=== PATIENT | female | born 1955 | race Caucasian/White ===

== ENCOUNTER 2019-05-23 17:02 | Emergency (ER) | payer MEDICARE, OTHER ==
[~2019-05-23] VITALS: Ht 167.7 cm; Wt 133.6 kg
--- NOTE | 2019-05-23 17:30 | ED General ---
General Stated Complaint: EPISTAXIS Source of Information: Patient, Family Exam Limitations: No Limitations History of Present Illness Date Seen by Provider: May 23, 2019 Time Seen by Provider: 17:15 Initial Comments Presents w intermittent nosebleeds for past few days. Seen by PCP today and sent to ER w concern of persistent nosebleed. Bleeding stopped prior to arrival. Typically does not have nosebleeds. Hx COPD, but denies CP or soa. Recent hospital admission and states she was on 7 L of oxygen / [place]. On home O2 only prn. Denies trauma or Hx bleeding problem. Elevated HR noted, pt says she has a Hx of the same and takes metoprolol 2x/day to control her heart rate. Has not taken her evening dose of metoprolol. Otherwise, feeling fine and without further complaint. Allergies and Home Medications Allergies Coded Allergies: Penicillins (Verified Allergy, Unknown, 05/23/19) Tetanus Vaccines and Toxoid (Verified Allergy, Unknown, 05/23/19) smallpox vaccine,live (Verified Allergy, Unknown, 05/23/19) Patient Home Medication List Home Medication List Reviewed: Yes Review of Systems Review of Systems Constitutional: see HPI; No chills, No diaphoresis, No dizziness, No fever, No malaise, No weakness EENTM: epistaxis, nose congestion; No ear discharge, No ear pain, No hoarseness, No mouth pain, No mouth swelling, No nose pain, No throat pain, No throat swelling Respiratory: see HPI; No cough, No dyspnea on exertion, No orthopnea, No phlegm, No short of breath, No stridor, No wheezing Cardiovascular: No chest pain, No edema, No palpitations, No syncope, No vascular heart diseas Gastrointestinal: No abdominal pain, No vomiting Past Ogmvshj-Wrilpj-Lihggc Hx Past Med/Social Hx: Reviewed Nursing Past Med/Soc Hx Patient Social History Recent Foreign Travel: No Physical Exam Vital Signs Vital Signs - First Documented 05/23/19 17:10 Temp 36.4 Pulse 122 Resp 24 B/P (MAP) 131/77 (95) Pulse Ox 88 O2 Delivery Room Air Capillary Refill : Height, Weight, BMI Height: '" Weight: lbs. oz. kg; BMI Method: General Appearance: No Apparent Distress, WD/WN; No Anxious HEENT: TMs Normal, Pharynx Normal; No Pharyngeal Erythema; Other (Nose, small amount dried blood right nares without clot or active bleeding.) Cardiovascular: No Edema, No JVD, No Murmur, Normal Peripheral Pulses, Tachycardia (HR initially in 120's) Extremity: Normal Capillary Refill, Normal Inspection Neurologic/Psychiatric: Alert, Oriented x3, No Motor/Sensory Deficits, Normal Mood/Affect Progress/Results/Core Measures Suspected Sepsis SIRS Temperature: Pulse: Respiratory Rate: Blood Pressure / Mean: Results/Orders My Orders Orders - NORA GARRIDO DO Metoprolol Tartrate (Ir) Tab (Lopressor (05/23/19 19:00) Medications Given in ED Current Medications Medications Dose Ordered Sig/Sameer Route Start Time Stop Time Status Last Admin Dose Admin Metoprolol Tartrate 25 mg ONCE ONCE PO 05/23/19 19:00 05/23/19 19:01 DC 05/23/19 18:56 25 MG Vital Signs/I&O 05/23/19 17:10 Temp 36.4 Pulse 122 Resp 24 B/P (MAP) 131/77 (95) Pulse Ox 88 O2 Delivery Room Air Capillary Refill : Progress Note : Progress Note Patient initially willing to take her PM dose of Metoprolol (was her suggestion), then when nurse went to dispense patient refused medication and said they just wanted to go home. I intervened and talked to patient, her daughter left angry that we were not letting her go with a HR of 120. Pt agreed to take the metoprolol, and stated that her heart does this and that's why she takes it. Did Not want to sign out AMA. Still asymptomatic and no nose bleed. HR eventually slowed to low 100's and pt adamant that she is always in this range and was feeling good. Discharged pt home w instructions on Epistaxis and sinus tachycardia. Departure Impression Primary Impression: Epistaxis Additional Impression: Sinus tachycardia Disposition: HOME, SELF-CARE Condition: Improved Departure-Patient Inst. Referrals: JAN ZIEGLER (PCP) Primary Care Physician Patient Instructions: Nosebleeds (DC), Sinus Tachycardia (DC) NORA GARRIDO DO May 23, 2019 17:30 POS
[2019-05-23] MEDS ORDERED: BACI28.4 TP (18:58)
[2019-05-23] MEDS ORDERED: meTOprolol TARTRATE 25 MG (LOPRESSOR) TABLET PO ONE (19:00)
[2019-05-23 20:54] VITALS: BP 118/73
== END 2019-05-23 20:54 | disposition home or self-care (01) ==
LOC: ER FS 17:04
DX: R04.0 Epistaxis (principal); R00.0 Tachycardia, unspecified; J44.9 Chronic obstructive pulmonary disease, unspecified; Z99.81 Dependence on supplemental oxygen; Z88.0 Allergy status to penicillin; Z88.7 Allergy status to serum and vaccine